=== PATIENT | female | born 1955 | race African-American/Black ===

== ENCOUNTER → 2019-10-10 | Day surgery (SDC) | payer OTHER ==
[~2019-10-10] MED LIST: ARIP5TAB13 PO; ASPI-630 PO; ATOR10TA60 PO; IV RINGERS,LACTATED 1000ML 1,000 ML IV ONE; LIDOCAINE 2% PF 5 ML VIAL. ONE; METF100010 PO; OXYB5TAB10 PO; PHEN37.5 PO; PRAZ2CAP2 PO; PROPOFOL 40 ML IV ONE; SAXA5TAB PO; VENL75TA PO
[2019-10-10 08:48] VITALS: BP 154/79
--- NOTE | 2019-10-13 15:07 | PATHOLOGY ---
[facility] Accession Number: [id number] . 01 Material submitted: . hepatic flexure - HEPATIC FLEXURE POLYP BIOPSY . 01 Clinical history: . Family history of colon cancer . 02 Diagnosis: Colon biopsies, hepatic flexure polyp: - Hyperplastic polyp. . ([facility]:mm; 10/13/2019) [facility] 10/13/2019 0932 Local . 02 Comment: There is no high grade dysplasia or evidence of malignancy. . ([facility]:mm; 10/13/2019) . 02 Electronically signed: . Marc Saxena MD, Pathologist NPI- [id number] . 01 Gross description: . The specimen is received in formalin, labeled "Jessica Gamez, hepatic flexure polyp biopsy". Received are two segments of pale fountain soft tissue ranging in size from 0.4 to 0.5 cm in maximum dimensions. The specimen is submitted entirely in cassette A1. ([facility]; 10/10/2019) QA/QA 10/10/2019 1725 Local . 02 Pathologist provided ICD-10: K63.5 . 02 CPT . 564365 Specimen Comment: A courtesy copy of this report has been sent to [phone] Specimen Comment: Report sent to Specimen Comment: A duplicate report has been generated due to demographic updates. Performed at: 01 [facility] [address], [place] [id number] MD Danny Hernández MD Phone: [phone] Performed at: 02 [facility] [address], [place] [id number] MD Marc Saxena MD Phone: [phone]
== END | disposition home or self-care (01) ==
LOC: ENDOS 07:44
PROVIDERS: ATTEND Internal Medicine Gastroenterology
DX: Z12.11 Encounter for screening for malignant neoplasm of colon (principal); K63.5 Polyp of colon; K63.89 Other specified diseases of intestine; F41.9 Anxiety disorder, unspecified; F32.9 Major depressive disorder, single episode, unspecified; M19.90 Unspecified osteoarthritis, unspecified site; E11.9 Type 2 diabetes mellitus without complications; Z83.3 Family history of diabetes mellitus; Z79.82 Long term (current) use of aspirin; Z80.0 Family history of malignant neoplasm of digestive organs; Z88.0 Allergy status to penicillin; Z91.041 Radiographic dye allergy status; Z79.84 Long term (current) use of oral hypoglycemic drugs; Z79.899 Other long term (current) drug therapy; Z90.710 Acquired absence of both cervix and uterus; Z98.890 Other specified postprocedural states
CPT/HCPCS: 45380; 82962; 88305; J2001; J2704